=== PATIENT | female | born 1985 | race Caucasian/White ===

== ENCOUNTER 2016-11-19 23:57 | Emergency (ER) | payer OTHER ==
[2016-11-19] MEDS ORDERED: PENICILLIN G BENZATHINE 1,200,000 UNIT/2 ML PFS IM ONE (23:59)
[2016-11-20 00:02] VITALS: BP 117/64; PULSE 102; TEMP 101.8; BMI 33.5
[2016-11-20] MEDS ORDERED: IBUPROFEN 600 MG TABLET (FP) PO ONE (00:03)
--- NOTE | 2016-11-20 00:03 | PDOC ---
History of Present Illness - General Chief Complaint: Sore Throat Stated Complaint: SORE THROAT History Source: Patient Exam Limitations: No Limitations - History of Present Illness Initial Comments: 11/20/16 00:00 This is a 31-year-old female who comes in for evaluation of fever as an sore throat 1 day. Patient has history of strep pharyngitis in the past with similar symptoms. Patient denies any nausea vomiting or diarrhea. Patient denies any shortness of breath or chest pain. Patient is otherwise healthy. PAST MEDICAL HISTORY: no significant history PAST SURGICAL HISTORY: no significant history FAMILY HISTORY: no pertinant history SOCIAL HISTORY: Pt lives with family and is employed. MEDICATIONS: reviewed ALLERGIES: As per nursing notes Review of Systems General: + fevers or chills, no weakness, no weight loss HEENT: No change in vision. + sore throat,. No ear pain CardioVascular: No chest pain or shortness of breath Respiratory:No cough, or wheezing. Gastrointestinal: no nausea, vomitting, diarrhea or constipation, No rectal bleeding Genitourinary: No dysuria, hematuria, or frequency Musculoskeletal: No joint or muscle pain or swelling Neurologic: No headache, vertigo, dizziness or loss of consciousness Psychiatric: nor depression Skin: No rashes or easy bruising Endocrine: no increased thirst or abnormal weight change Allergic: no skin or latex allergy All other systems reviewed and trent GENERAL: The patient is awake, alert, and fully oriented, in no acute distress. HEAD: Normal with no signs of trauma. THROAT: Tonsils are enlarged bilateral posterior oropharynx with exudate. NECK: Neck is supple there are no meningeal signs there is bilateral submandibular lymphadenopathy EYES: Pupils equal, round and reactive to light, extraocular movements intact, sclera anicteric, conjunctiva clear. EXTREMITIES: Normal range of motion, no edema. NEUROLOGICAL: Normal speech, normal gait. PSYCH: Normal mood, normal affect. SKIN: Warm, Dry, normal turgor, no rashes or lesions noted. Assessment and plan: This is a 31-year-old female who comes in with fever exudative pharyngitis and lymphadenopathy. Patient meets criteria for antibiotics for presumptive strep pharyngitis. Patient given a shot of Bicillin LA and discharged home will follow-up with her primary care doctor as needed Past History - Past Medical History Allergies/Adverse Reactions: Allergies Allergy/AdvReac Type Severity Reaction Status Date / Time No Known Allergies Allergy Unverified 11/19/16 23:58 Home Medications: Ambulatory Orders NK [No Known Home Medication] 11/19/16 *DC/Admit/Observation/Transfer Diagnosis at time of Disposition: Acute streptococcal pharyngitis - Discharge Dispostion Disposition: HOME Condition at time of disposition: Stable Admit: No - Patient Instructions Printed Discharge Instructions: Strep Throat, Strep Throat (Alternative Therapy ) Additional Instructions: Tylenol or Motrin as needed for pain and fevers he may alternated every soft and is every 3 hours to control fevers. You were given a long-acting shot of an antibiotic in the emergency room and do not need any further antibiotics. Return to the emergency department immediately with ANY new, persistent or worsening symptoms. Continue any medications as previously prescribed by your physician. You should follow up with your primary doctor as soon as possible regarding today's emergency department visit. . Please make sure your doctor reviews the results of your emergency evaluation. Thank you for coming to the Emergency Department today for your care. It was a pleasure to see you today. Please note that your evaluation is INCOMPLETE until you follow-up with your doctor.
== END 2016-11-20 00:17 | disposition home or self-care (01) ==
LOC: FER 23:57
DX: J02.0 Streptococcal pharyngitis (principal)
CPT/HCPCS: 96372; 99281-25